=== PATIENT | female | born 1975 | race Caucasian/White ===

== ENCOUNTER → 2020-08-11 | Outpatient (CLI) | payer OTHER | LOC: CT 11:36 | PROVIDERS: ATTEND Internal Medicine | DX: R10.9 Unspecified abdominal pain (principal); N20.0 Calculus of kidney | CPT/HCPCS: 74176; 81025 ==

== ENCOUNTER → 2021-06-08 | Outpatient (CLI) | payer OTHER | LOC: RAD 15:38 | PROVIDERS: ATTEND Internal Medicine | DX: S99.911A Unspecified injury of right ankle, initial encounter (principal) ==

== ENCOUNTER → 2021-08-04 | Outpatient (CLI) | payer OTHER | LOC: MRI 08:48 | PROVIDERS: ATTEND Internal Medicine | DX: M54.42 Lumbago with sciatica, left side (principal); M51.36 Other intervertebral disc degeneration, lumbar region | CPT/HCPCS: 72148 ==

== ENCOUNTER → 2022-06-15 | Outpatient (CLI) | payer OTHER | LOC: RAD 10:04 | PROVIDERS: ATTEND Physical Medicine & Rehabilitation | DX: M25.552 Pain in left hip (principal) | CPT/HCPCS: 81025 ==

== ENCOUNTER → 2025-04-22 | Outpatient (REF) | payer OTHER | LOC: MAMMO 15:33 | PROVIDERS: ATTEND Internal Medicine | DX: Z12.31 Encounter for screening mammogram for malignant neoplasm of breast (principal); Z13.820 Encounter for screening for osteoporosis; Z78.0 Asymptomatic menopausal state; J18.9 Pneumonia, unspecified organism | CPT/HCPCS: 71046; 77067; 77080 ==